=== PATIENT | male | born 1990 | race Caucasian/White ===

== ENCOUNTER 2019-02-28 19:01 | Emergency (ER) | payer OTHER ==
[~2019-02-28] VITALS: Ht 170.2 cm; Wt 72.7 kg
[~2019-02-28 19:01] MED LIST: ALBU8HFA IH
[2019-02-28 19:48] VITALS: BP 118/77
[2019-02-28] MEDS ORDERED: ALBUTEROL SULFATE HFA 90 MCG/PUFF 8 GM INHALER IH ONE (20:00)
== END 2019-02-28 20:16 | disposition home or self-care (01) ==
LOC: EMS 19:02
DX: J45.901 Unspecified asthma with (acute) exacerbation (principal); F17.210 Nicotine dependence, cigarettes, uncomplicated
CPT/HCPCS: 94640; 99406; J3535

== ENCOUNTER 2019-05-12 18:22 | Emergency (ER) | payer OTHER ==
[~2019-05-12] VITALS: Ht 167.6 cm; Wt 68.2 kg
[2019-05-12] MEDS ORDERED: 0.9% SODIUM CHLORIDE 5 ML NEB SOLUTION NEB ONE (19:10)
[2019-05-12] MEDS ORDERED: ALBUTEROL SULFATE 2.5 MG/0.5 ML NEB SOLUTION NEB ONE (19:15)
[2019-05-12] MEDS ORDERED: IPRATROPIUM BROMIDE 0.5 MG/2.5 ML NEB SOLUTION NEB ONE (19:15)
[2019-05-12] MEDS ORDERED: ALBUTEROL SULFATE HFA 90 MCG/PUFF 8 GM INHALER IH ONE (19:30)
[2019-05-12] MEDS ORDERED: PredniSONE 20 MG TABLET PO ONE (19:30)
[2019-05-12 19:48] VITALS: BP 122/72
== END 2019-05-12 20:14 | disposition home or self-care (01) ==
LOC: EMS 18:23
DX: J45.901 Unspecified asthma with (acute) exacerbation (principal); F17.210 Nicotine dependence, cigarettes, uncomplicated; Z79.899 Other long term (current) drug therapy
CPT/HCPCS: 94640; 99284; 99406; J7512; 94060; J3535